=== PATIENT | female | born 1950 | race Caucasian/White ===

== ENCOUNTER 2017-08-27 20:51 | Emergency (ER) | payer MEDICARE ==
[2017-08-27 21:05] LABS: ABSOLUTE EOSINOPHILS # (AUTO) 0.1 10^3/uL (0.0-0.6); ABSOLUTE LYMPHOCYTES (AUTO) 2.6 10^3/uL (0.5-4.7); ABSOLUTE MONOCYTES (AUTO) 1.1 10^3/uL (0.1-1.4); ABSOLUTE NEUT (AUTO) 13.2 10^3/uL (1.7-8.2); BASOPHILS % (AUTO) 0.3 % (0-2); EOSINOPHILS % (AUTO) 0.8 % (0-6); HEMATOCRIT 40.7 % (36.0-47.0); HEMOGLOBIN 13.7 g/dL (12.0-15.5); LYMPHOCYTES % (AUTO) 15.3 % (13-45); MEAN CORPUSCULAR HEMOGLOBIN 29.9 pg (27.0-33.4); MEAN CORPUSCULAR HGB CONC 33.6 g/dL (32.0-36.0); MEAN CORPUSCULAR VOLUME 89 fl (80-97); MONOCYTES % (AUTO) 6.4 % (3-13); PLATELET COUNT 254 10^3/uL (150-450); RED BLOOD COUNT 4.58 10^6/uL (3.72-5.28); RED CELL DISTRIBUTION WIDTH 13.2 % (11.5-14.0); SEGMENTED NEUTROPHILS % (AUTO) 77.2 % (42-78); TOTAL CELLS COUNTED % (AUTO) 100 %
[2017-08-27 21:23] LABS: ALANINE AMINOTRANSFERASE 32 U/L (9-52); ALBUMIN 3.7 g/dL (3.5-5.0); ALKALINE PHOSPHATASE 109 U/L (38-126); ANION GAP 12 (5-19); ASPARTATE AMINO TRANSFERASE 17 U/L (14-36); BILIRUBIN,DIRECT 0.2 mg/dL (0.0-0.4); BILIRUBIN,TOTAL 0.4 mg/dL (0.2-1.3); BLOOD UREA NITROGEN 14 mg/dL (7-20); CALCIUM 9.2 mg/dL (8.4-10.2); CARBON DIOXIDE 21 mmol/L (22-30); CHLORIDE 108 mmol/L (98-107); CREATINE KINASE 60 U/L (30-135); GLUCOSE 156 mg/dL (75-110); POTASSIUM 3.4 mmol/L (3.6-5.0); SODIUM 140.6 mmol/L (137-145); TOTAL PROTEIN 6.5 g/dL (6.3-8.2)
[2017-08-27 21:35] LABS: CREATINE KINASE MB 0.69 ng/mL (<4.55)
[2017-08-27 21:43] LABS: TROPONIN I < 0.012 ng/mL
[2017-08-27] MEDS ORDERED: MAG HYDROX/AL HYDROX/SIMETH SUSP 30 ML UDCUP PO PRN (22:10)
[2017-08-27] MEDS ORDERED: HYDRALAZINE HCL INJ/PF 20 MG/1 ML SDV IV PRN (22:12)
--- NOTE | 2017-08-27 22:16 | ER Document Report ---
ED General - General Chief Complaint: Chest Pain > 30 Stated Complaint: CHEST PAIN Time Seen by Provider: 08/27/17 21:25 Notes: Patient is a 67-year-old female with a past medical history of hypertension, morbid obesity, small vessel atherotic coronary artery disease identified on a catheterization 5 years ago who presents with an episode of chest pain with associated diaphoresis and nausea. Patient states that she had chest pain that developed approximately 3 PM today while grocery shopping. She states that the chest pressure was a dull, constant, aching pressure over the left side of the chest without radiation. She states that it persisted for the next several hours and she eventually decided to take a dose of nitroglycerin. She stated approximately 3 or 4 minutes after taking that dose of nitroglycerin she became diaphoretic, nauseated and felt like she was going to pass out. She states that the pain also began to radiate into her neck at that time. She denies actually vomiting and denies any associated shortness of breath. She states that she did have a diarrheal bowel movement in the context of these symptoms. EMS was contacted and she was transported to the hospital. She denies ever having similar symptoms in the past. She states she has never had any kind of adverse reaction to taking nitroglycerin in the past. At time of presentation she notes that there is a sensation "that is just there" in her left chest but denies any ongoing pain or pressure. She has not seen her primary doctor regarding today's concerns. She has not had any provocative cardiac testing since her cardiac catheterization 5 years ago. TRAVEL OUTSIDE OF THE [place] IN LAST 30 DAYS: No - Related Data Allergies/Adverse Reactions: morphine [Morphine] Allergy (Intermediate, Verified 08/27/17 21:41) itching prednisone [Prednisone] Allergy (Verified 08/27/17 21:41) zolpidem tartrate [From Ambien] Allergy (Verified 08/27/17 21:41) bupropion [From Wellbutrin] Adverse Reaction (Verified 08/27/17 21:41) venlafaxine [From Effexor] Adverse Reaction (Verified 08/27/17 21:41) Past Medical History - General Information source: Patient - Social History Smoking Status: Never Smoker Chew tobacco use (# tins/day): Yes Frequency of alcohol use: None Drug Abuse: None Lives with: Family Family History: Reviewed & Not Pertinent Patient has suicidal ideation: No Patient has homicidal ideation: No - Past Medical History Cardiac Medical History: Reports: Hx Coronary Artery Disease, Hx Hypertension Denies: Hx Heart Attack Pulmonary Medical History: Reports: Hx Bronchitis - CHRONIC SINUS PROBS, Hx Pneumonia Denies: Hx Asthma, Hx COPD Neurological Medical History: Reports: Hx Migraine. Denies: Hx Cerebrovascular Accident, Hx Seizures Endocrine Medical History: Reports: Hx Diabetes Mellitus Type 2 Renal/ Medical History: Denies: Hx Peritoneal Dialysis GI Medical History: Denies: Hx Hepatitis, Hx Hiatal Hernia, Hx Ulcer Musculoskeltal Medical History: Reports Hx Arthritis Infectious Medical History: Denies: Hx Hepatitis Past Surgical History: Reports: Hx Appendectomy, Hx Hysterectomy, Hx Orthopedic Surgery - laminectomy, left shoulder. Denies: Hx Mastectomy, Hx Open Heart Surgery, Hx Pacemaker - Immunizations Hx Diphtheria, Pertussis, Tetanus Vaccination: Yes Hx Pneumococcal Vaccination: 08/08/10 Review of Systems - Review of Systems Notes: Constitutional: Negative for fever. HENT: Negative for sore throat. Eyes: Negative for visual changes. Cardiovascular: Negative for chest pain. Respiratory: Negative for shortness of breath. Gastrointestinal: Negative for abdominal pain, vomiting or diarrhea. Genitourinary: Negative for dysuria. Musculoskeletal: Negative for back pain. Skin: Negative for rash. Neurological: Negative for headaches, weakness or numbness. 10 point ROS negative except as marked above and in HPI. Physical Exam - Vital signs Vitals: Pulse Ox 94 18 20:54 Interpretation: Normal Notes: PHYSICAL EXAMINATION: GENERAL: Well-appearing, well-nourished and in no acute distress. HEAD: Atraumatic, normocephalic. EYES: Pupils equal round and reactive to light, extraocular movements intact, sclera anicteric, conjunctiva are normal. ENT: nares patent, oropharynx clear without exudates. Moist mucous membranes. NECK: Normal range of motion, supple without lymphadenopathy LUNGS: Breath sounds clear to auscultation bilaterally and equal. No wheezes rales or rhonchi. HEART: Regular rate and rhythm without murmurs ABDOMEN: Soft, nontender, normoactive bowel sounds. No guarding, no rebound. No masses appreciated. EXTREMITIES: Normal range of motion, no pitting or edema. No cyanosis. NEUROLOGICAL: No focal neurological deficits. Moves all extremities spontaneously and on command. PSYCH: Normal mood, normal affect. SKIN: Warm, Dry, normal turgor, no rashes or lesions noted. Course - Re-evaluation Re-evalutation: 08/27/17 22:16 Patient presents with a worrisome chest pain episode with associated diaphoresis and nausea with left-sided chest heaviness. This constellation of symptoms is concerning for an ACS event even though her EKG here does not show any acute ischemic changes and her initial troponin is negative. She denies any active chest heaviness or pain at this time. Vitals otherwise within normal limits. Chest x-ray is clear. Given her history and elevated heart score at 5, I am not comfortable with discharging this patient. I discussed with Dr. Poon who is accepted the patient for admission - Vital Signs Vital signs: Temp Pulse Resp BP Pulse Ox 98.9 F 72 12 116/53 L 96 08/27/17 21:15 08/27/17 21:15 08/28/17 02:31 08/28/17 02:31 08/28/17 02:31 - Laboratory Result Diagrams: 08/27/17 20:55 08/27/17 20:55 Laboratory results interpreted by me: 08/27/17 08/27/17 20:55 20:55 WBC 17.0 H Absolute Neutrophils 13.2 H Potassium 3.4 L Chloride 108 H Carbon Dioxide 21 L Est GFR (Non-Af Amer) 49 L Glucose 156 H - Diagnostic Test Radiology reviewed: Image reviewed, Reports reviewed Radiology results interpreted by me: 08/28/17 03:36 Chest x-ray: No acute infiltrate or pneumothorax - EKG Interpretation by Me Additional EKG results interpreted by me: 08/28/17 03:36 Normal sinus rhythm. Rate 74. No ST elevations or depressions. QTC is 435. T -wave flattening in the anterior septal leads Discharge - Discharge Clinical Impression: Nausea Chest pain Qualifiers: Chest pain type: unspecified Qualified Code(s): R07.9 - Chest pain, unspecified Condition: Fair Disposition: ADMITTED OBSERVATION Admitting Provider: Neelima Poon Unit Admitted: Telemetry
[2017-08-27] MEDS ORDERED: NITROGLYCERIN 0.4 MG/TAB 25 TAB/BOTTLE SL PRN (22:17)
[2017-08-27] MEDS ORDERED: ASPIRIN 81 MG TABLET, CHEWABLE PO ONE (22:17)
--- NOTE | 2017-08-27 22:17 | EKG REPORT ---
SEVERITY:- BORDERLINE ECG - SINUS RHYTHM BORDERLINE R WAVE PROGRESSION, ANTERIOR LEADS BORDERLINE T ABNORMALITIES, ANTERIOR LEADS : Confirmed by: Darrell Gaitan 27-Aug-2017 22:17:17
--- NOTE | 2017-08-27 22:24 | RADIOLOGY REPORT (SQ) ---
EXAM DESCRIPTION: CHEST SINGLE VIEW COMPLETED DATE/TIME: 08/27/2017 10:08 pm REASON FOR STUDY: cp COMPARISON: 10/14/2014 EXAM PARAMETERS: NUMBER OF VIEWS: One view. TECHNIQUE: Single frontal radiographic view of the chest acquired. RADIATION DOSE: NA LIMITATIONS: None. FINDINGS: LUNGS AND PLEURA: No opacities, masses or pneumothorax. No pleural effusion. MEDIASTINUM AND HILAR STRUCTURES: No masses. Contour normal. HEART AND VASCULAR STRUCTURES: Heart normal in size. Normal vasculature. BONES: No acute findings. HARDWARE: None in the chest. OTHER: No other significant finding. IMPRESSION: NO ACUTE RADIOGRAPHIC FINDING IN THE CHEST. TECHNICAL DOCUMENTATION: JOB ID: [id number]- All Rights Reserved
[2017-08-27] MEDS ORDERED: ATORVASTATIN CALCIUM 80 MG TABLET PO ONE (22:30)
[2017-08-27] MEDS ORDERED: KETOROLAC TROMETHAMINE INJ/PF 30 MG/1 ML SDV IV PRN (23:30)
[2017-08-27] MEDS ORDERED: ACETAMINOPHEN 325 MG TABLET PO PRN (23:30)
[2017-08-27] MEDS ORDERED: TRAMADOL HCL 50 MG TABLET PO PRN (23:30)
[2017-08-28 04:44] LABS: ABSOLUTE EOSINOPHILS # (AUTO) 0.1 10^3/uL (0.0-0.6); ABSOLUTE LYMPHOCYTES (AUTO) 3.2 10^3/uL (0.5-4.7); ABSOLUTE NEUT (AUTO) 7.4 10^3/uL (1.7-8.2); BASOPHILS % (AUTO) 0.2 % (0-2); EOSINOPHILS % (AUTO) 1.2 % (0-6); HEMOGLOBIN 12.4 g/dL (12.0-15.5); LYMPHOCYTES % (AUTO) 27.5 % (13-45); MEAN CORPUSCULAR HEMOGLOBIN 29.7 pg (27.0-33.4); MEAN CORPUSCULAR HGB CONC 33.5 g/dL (32.0-36.0); MEAN CORPUSCULAR VOLUME 89 fl (80-97); MONOCYTES % (AUTO) 8.3 % (3-13); PLATELET COUNT 197 10^3/uL (150-450); RED BLOOD COUNT 4.18 10^6/uL (3.72-5.28); SEGMENTED NEUTROPHILS % (AUTO) 62.8 % (42-78); TOTAL CELLS COUNTED % (AUTO) 100 %; WHITE BLOOD COUNT 11.8 10^3/uL (4.0-10.5)
[2017-08-28 05:05] LABS: ANION GAP 8 (5-19); BLOOD UREA NITROGEN 15 mg/dL (7-20); CALCIUM 7.9 mg/dL (8.4-10.2); CARBON DIOXIDE 20 mmol/L (22-30); CHLORIDE 112 mmol/L (98-107); CHOLESTEROL 147.92 mg/dL (0-200); CREATINE KINASE 65 U/L (30-135); GLUCOSE 101 mg/dL (75-110); POTASSIUM 3.3 mmol/L (3.6-5.0); SODIUM 139.8 mmol/L (137-145); TRIGLYCERIDES 96 mg/dL (<150)
[2017-08-28 05:16] LABS: CREATINE KINASE MB 0.85 ng/mL (<4.55)
[2017-08-28 05:21] LABS: TROPONIN I < 0.012 ng/mL
[2017-08-28 05:49] LABS: DIRECT LDL 85 mg/dL (<100)
[2017-08-28] MEDS: HEPARIN SOD (PORCINE) 5,000 UNIT/ML 1 ML SYRINGE SUBCUT SCH ×3 (06:14→22:22)
[2017-08-28] MEDS ORDERED: POTASSIUM CHLORIDE 10 MEQ TABLET.SA PO ONE (06:19)
--- NOTE | 2017-08-28 06:57 | PDOC H&P ---
History of Present Illness Admission Date/PCP: 08/27/17 22:30 GLADYS MARTINEZ MD Patient complains of: Chest tightness History of Present Illness: CHELY APONTE is a 67 year old female with a past medical history of chronic pain, fibromyalgia, unclear angina, depression, anxiety, hypertension and obesity. Patient presents with 3 hours of left-sided chest tightness she describes as angina which was nonradiating, without nausea or vomiting, or diaphoresis. 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 She took a sublingual nitroglycerin tablet resulting in diaphoresis, lightheadedness and urged to defecate. No clear alleviating symptoms. Patient states she has been having increased episodes of chest tightness but has not taken nitroglycerin for 6 months. She admits to angina diagnosis following a cardiac catheterization 5 years ago at [facility] showing distal disease only. Patient reports recent annual physical reveals ideal cholesterol. She is taking no new medications. In the emergency room she has an unremarkable workup and is referred to the hospitalist for observation. Past Medical History Cardiac Medical History: Reports: Coronary Artery Disease, Hypertension Denies: Myocardial Infarction Pulmonary Medical History: Reports: Bronchitis - CHRONIC SINUS PROBS, Pneumonia Denies: Asthma, Chronic Obstructive Pulmonary Disease (COPD) Neurological Medical History: Reports: Migraine Denies: Seizures Endocrine Medical History: Reports: Diabetes Mellitus Type 2 GI Medical History: Denies: Hepatitis, Hiatal Hernia Musculoskeltal Medical History: Reports: Arthritis Hematology: Denies: Anemia, Sickle Cell Disease Past Surgical History Past Surgical History: Reports: Appendectomy, Hysterectomy, Orthopedic Surgery - laminectomy, left shoulder Denies: Amputation, Mastectomy, Pacemaker Social History Information Source: Patient Lives with: Family Smoking Status: Never Smoker Frequency of Alcohol Use: None - Advance Directive Resuscitation Status: Full Code Family History Family History: CAD, DM Parental Family History Reviewed: Yes Children Family History Reviewed: Yes Sibling(s) Family History Reviewed.: Yes Medication/Allergy Home Medications: Alprazolam [Xanax 0.25 mg Tablet] 0.25 mg PO Q6HP PRN 03/20/14 Biotin [Biotin 5 mg Capsule] 1 cap PO DAILY 03/20/14 Citalopram Hydrobromide [Celexa 40 mg Tablet] 1 tab PO DAILY 03/20/14 Ergocalciferol (Vitamin D2) [Vitamin D2] 50,000 unit PO DAILY 03/20/14 Fluticasone Propionate [Flonase Nasal Ft [place] 50 Mcg/Ft Mitchell 16 gm] 1 spray NASL Q12 03/20/14 Nitrofurantoin Macrocrystal [Nitrofurantoin] 50 mg PO DAILY 03/20/14 Pregabalin [Lyrica 50 Mg Capsule] 50 mg PO DAILY 03/20/14 Cetirizine HCl 10 mg PO DAILY 08/19/17 Esomeprazole Magnesium 20 mg PO DAILY 08/19/17 Montelukast Sodium [Singulair] 10 mg PO QHS 08/19/17 Valsartan [Diovan 80 mg Tablet] 80 mg PO DAILY 08/19/17 Zonisamide 100 mg PO DAILY 08/19/17 Allergies/Adverse Reactions: morphine [Morphine] Allergy (Intermediate, Verified 08/27/17 21:41) itching prednisone [Prednisone] Allergy (Verified 08/27/17 21:41) zolpidem tartrate [From Ambien] Allergy (Verified 08/27/17 21:41) bupropion [From Wellbutrin] Adverse Reaction (Verified 08/27/17 21:41) venlafaxine [From Effexor] Adverse Reaction (Verified 08/27/17 21:41) Review of Systems Constitutional: ABSENT: chills, fever(s), headache(s), weight gain, weight loss Eyes: ABSENT: visual disturbances Ears: ABSENT: hearing changes Cardiovascular: ABSENT: chest pain, dyspnea on exertion, edema, orthropnea, palpitations Respiratory: ABSENT: cough, hemoptysis Gastrointestinal: ABSENT: abdominal pain, constipation, diarrhea, hematemesis, hematochezia, nausea, vomiting Genitourinary: ABSENT: dysuria, hematuria Musculoskeletal: ABSENT: joint swelling Integumentary: ABSENT: rash, wounds Neurological: ABSENT: abnormal gait, abnormal speech, confusion, dizziness, focal weakness, syncope Psychiatric: ABSENT: anxiety, depression, homidical ideation, suicidal ideation Endocrine: ABSENT: cold intolerance, heat intolerance, polydipsia, polyuria Hematologic/Lymphatic: ABSENT: easy bleeding, easy bruising Physical Exam Vital Signs: Temp Pulse Resp BP Pulse Ox 98.9 F 72 15 106/57 L 96 08/27/17 21:15 08/27/17 21:15 08/28/17 05:31 08/28/17 05:01 08/28/17 05:31 General appearance: PRESENT: no acute distress, well-developed, well-nourished Head exam: PRESENT: atraumatic, normocephalic Eye exam: PRESENT: conjunctiva pink, EOMI, PERRLA. ABSENT: scleral icterus Ear exam: PRESENT: normal external ear exam Mouth exam: PRESENT: moist, tongue midline Neck exam: ABSENT: carotid bruit, JVD, lymphadenopathy, thyromegaly Respiratory exam: PRESENT: clear to auscultation rosa. ABSENT: rales, rhonchi, wheezes Cardiovascular exam: PRESENT: RRR. ABSENT: diastolic murmur, rubs, systolic murmur Pulses: PRESENT: normal dorsalis pedis pul Vascular exam: PRESENT: normal capillary refill GI/Abdominal exam: PRESENT: normal bowel sounds, soft. ABSENT: distended, guarding, mass, organolmegaly, rebound, tenderness Rectal exam: PRESENT: deferred Extremities exam: PRESENT: full ROM. ABSENT: calf tenderness, clubbing, pedal edema Neurological exam: PRESENT: alert, awake, oriented to person, oriented to place , oriented to time, oriented to situation, CN II-XII grossly intact. ABSENT: motor sensory deficit Psychiatric exam: PRESENT: appropriate affect, normal mood. ABSENT: homicidal ideation, suicidal ideation Skin exam: PRESENT: dry, intact, warm. ABSENT: cyanosis, rash Results Laboratory Results: 08/28/17 04:24 08/28/17 04:24 08/28/17 08/28/17 04:24 04:24 WBC 11.8 H RBC 4.18 Hgb 12.4 Hct 37.0 MCV 89 MCH 29.7 MCHC 33.5 RDW 13.0 Plt Count 197 Seg Neutrophils % 62.8 Lymphocytes % 27.5 Monocytes % 8.3 Eosinophils % 1.2 Basophils % 0.2 Absolute Neutrophils 7.4 Absolute Lymphocytes 3.2 Absolute Monocytes 1.0 Absolute Eosinophils 0.1 Absolute Basophils 0.0 Sodium 139.8 Potassium 3.3 L Chloride 112 H Carbon Dioxide 20 L Anion Gap 8 BUN 15 Creatinine 0.79 Est GFR ( Amer) > 60 Est GFR (Non-Af Amer) > 60 Glucose 101 Calcium 7.9 L Triglycerides 96 Cholesterol 147.92 LDL Cholesterol Direct 85 VLDL Cholesterol 19.0 HDL Cholesterol 51 08/28/17 08/28/17 04:24 04:24 Creatine Kinase 65 CK-MB (CK-2) 0.85 Troponin I < 0.012 Impressions: Chest X-Ray 08/27/17 20:54 IMPRESSION: NO ACUTE RADIOGRAPHIC FINDING IN THE CHEST. Assessment & Plan - Diagnosis (1) Atypical chest pain Is this a current diagnosis for this admission?: Yes Plan: Atypical chest pain though the patient's pain is atypical there are multiple risk factors for coronary artery disease and subsequently will observe and evaluation of acute coronary syndrome versus coronary artery disease with anginal equivalents. Cardiac monitoring blood pressure Q6 hours ,TSH, lipid profile, serial cardiac enzymes and cardiac stress test (2) Fibromyalgia Is this a current diagnosis for this admission?: Yes Plan: Supportive care (3) Hypertension Is this a current diagnosis for this admission?: Yes Plan: Appears ideally controlled with outpatient regiment (4) Hyperglycemia Is this a current diagnosis for this admission?: Yes Plan: We will obtain glycosylated hemoglobin. - Time Time Spent: 30 to 50 Minutes
[2017-08-28] MEDS: DOCUSATE SODIUM 100 MG CAPSULE PO SCH (09:26)
[2017-08-28 11:03] LABS: CREATINE KINASE MB 0.97 ng/mL (<4.55)
[2017-08-28 11:08] LABS: TROPONIN I < 0.012 ng/mL
--- NOTE | 2017-08-28 16:28 | PDOC PROGRESS REPORT ---
Subjective Progress Note for:: 08/28/17 Subjective:: The patient is a 67 year old female with a PMH of chronic pain, fibromyalgia, unclear angina, depression, anxiety, hypertension and obesity. She was admitted on 08/27/18 for atypical chest pain for cardiac work up. The patient was seen on morning rounds resting in bed comfortably on room air. She states that she continues to have left upper chest discomfort described as "awareness and maybe pressure" that is not particularly worsened by activity or relieved by rest. She denies associated symptoms of headache, dizziness, dyspnea, diaphoresis, or nausea. She is no questions or concerns at this time. Awaiting cardiac stress testing. Reason For Visit: CHEST PAIN Physical Exam Vital Signs: Temp Pulse Resp BP Pulse Ox 97.5 F 63 20 138/71 H 98 08/28/17 15:08 08/28/17 15:08 08/28/17 15:08 08/28/17 15:08 08/28/17 15:08 Intake & Output 08/27/17 08/28/17 08/29/17 06:59 06:59 06:59 Weight 90.71 kg 90.718 kg General appearance: PRESENT: no acute distress, cooperative, obese, well- developed, well-nourished Head exam: PRESENT: atraumatic, normocephalic Eye exam: PRESENT: conjunctiva pink, EOMI, PERRLA. ABSENT: scleral icterus Ear exam: PRESENT: normal external ear exam Mouth exam: PRESENT: moist, tongue midline Neck exam: ABSENT: carotid bruit, JVD, lymphadenopathy, thyromegaly Respiratory exam: PRESENT: clear to auscultation rosa, symmetrical, unlabored. ABSENT: rales, rhonchi, wheezes Cardiovascular exam: PRESENT: RRR, +S1, +S2. ABSENT: diastolic murmur, rubs, systolic murmur Pulses: PRESENT: normal dorsalis pedis pul Vascular exam: PRESENT: normal capillary refill GI/Abdominal exam: PRESENT: normal bowel sounds, soft. ABSENT: distended, guarding, mass, organolmegaly, rebound, tenderness Rectal exam: PRESENT: deferred Extremities exam: PRESENT: full ROM. ABSENT: calf tenderness, clubbing, pedal edema Neurological exam: PRESENT: alert, awake, oriented to person, oriented to place , oriented to time, oriented to situation, CN II-XII grossly intact. ABSENT: motor sensory deficit Psychiatric exam: PRESENT: appropriate affect, normal mood. ABSENT: homicidal ideation, suicidal ideation Skin exam: PRESENT: dry, intact, warm. ABSENT: cyanosis, rash Results Laboratory Results: 08/28/17 04:24 08/28/17 04:24 08/28/17 08/28/17 04:24 04:24 WBC 11.8 H RBC 4.18 Hgb 12.4 Hct 37.0 MCV 89 MCH 29.7 MCHC 33.5 RDW 13.0 Plt Count 197 Seg Neutrophils % 62.8 Lymphocytes % 27.5 Monocytes % 8.3 Eosinophils % 1.2 Basophils % 0.2 Absolute Neutrophils 7.4 Absolute Lymphocytes 3.2 Absolute Monocytes 1.0 Absolute Eosinophils 0.1 Absolute Basophils 0.0 Sodium 139.8 Potassium 3.3 L Chloride 112 H Carbon Dioxide 20 L Anion Gap 8 BUN 15 Creatinine 0.79 Est GFR ( Amer) > 60 Est GFR (Non-Af Amer) > 60 Glucose 101 Calcium 7.9 L Triglycerides 96 Cholesterol 147.92 LDL Cholesterol Direct 85 VLDL Cholesterol 19.0 HDL Cholesterol 51 08/28/17 08/28/17 08/28/17 04:24 04:24 10:15 Creatine Kinase 65 CK-MB (CK-2) 0.85 0.97 Troponin I < 0.012 < 0.012 Impressions: Chest X-Ray 08/27/17 20:54 IMPRESSION: NO ACUTE RADIOGRAPHIC FINDING IN THE CHEST. Assessment & Plan - Diagnosis (1) Atypical chest pain Is this a current diagnosis for this admission?: Yes Plan: Atypical chest pain; though patient does have multiple risk factors. Heart score of 4; moderate probability. Lipid panel and TSH are acceptable. Serial troponins are negative. Cardiac stress testing is planned for tomorrow. The patient reports a statin allergy and so will hold on continued atorvastatin. Will continue daily aspirin. (2) Fibromyalgia Is this a current diagnosis for this admission?: Yes Plan: Supportive care; will continue the patient's home dose of Lyrica and Celexa. Will provide Tramadol and Toradol prn pain. Encourage nonpharmacological interventions such as heat and ambulation. (3) Hypertension Is this a current diagnosis for this admission?: Yes Plan: Will continue the patient's home dose of Valsartan. Hydralazine as needed for blood pressure control. She has been placed on a cardiac diet. (4) Hyperglycemia Is this a current diagnosis for this admission?: Yes Plan: Hgb A1c is noted to be 6.6%. (5) Hypokalemia Is this a current diagnosis for this admission?: Yes Plan: Oral potassium supplementation has been provided. Will monitor with daily chemistries and replace as needed. - Time Time Spent with patient: 25-34 minutes Medications reviewed and adjusted accordingly: Yes Anticipated discharge: Home Within: within 24 hours
[2017-08-28 16:33] LABS: CREATINE KINASE MB 1.04 ng/mL (<4.55)
[2017-08-28 16:35] LABS: TROPONIN I < 0.012 ng/mL
[2017-08-28] MEDS ORDERED: LANSOPRAZOLE 30 MG TAB.RAP.DR PO ONE (21:30)
[2017-08-28] MEDS ORDERED: PREGABALIN 75 MG CAPSULE PO ONE (21:30)
[2017-08-28] MEDS ORDERED: CITALOPRAM HYDROBROMIDE 20 MG TABLET PO ONE (22:00)
[2017-08-28] MEDS ORDERED: VALSARTAN 80 MG TABLET PO ONE (22:00)
[2017-08-28] MEDS ORDERED: ATORVASTATIN CALCIUM 80 MG TABLET PO SCH (22:00)
[2017-08-28] MEDS ORDERED: MONTELUKAST SODIUM 10 MG TABLET PO SCH (22:00)
[2017-08-28] MEDS: FLUTICASONE NASAL SPRAY 50 MCG/SPRY 120 SPRAY/16 GM NASL SCH (22:29)
[2017-08-29] MEDS: HEPARIN SOD (PORCINE) 5,000 UNIT/ML 1 ML SYRINGE SUBCUT SCH ×2 (06:37→14:50)
[2017-08-29 07:06] LABS: HEMATOCRIT 38.7 % (36.0-47.0); HEMOGLOBIN 13.1 g/dL (12.0-15.5); MEAN CORPUSCULAR HGB CONC 33.8 g/dL (32.0-36.0); MEAN CORPUSCULAR VOLUME 89 fl (80-97); PLATELET COUNT 223 10^3/uL (150-450); RED BLOOD COUNT 4.36 10^6/uL (3.72-5.28); WHITE BLOOD COUNT 7.2 10^3/uL (4.0-10.5)
[2017-08-29 07:32] LABS: ANION GAP 8 (5-19); BLOOD UREA NITROGEN 16 mg/dL (7-20); CALCIUM 9.8 mg/dL (8.4-10.2); CARBON DIOXIDE 25 mmol/L (22-30); CHLORIDE 107 mmol/L (98-107); GLUCOSE 130 mg/dL (75-110); POTASSIUM 4.6 mmol/L (3.6-5.0); SODIUM 140.4 mmol/L (137-145)
[2017-08-29] MEDS ORDERED: ASPIRIN 81 MG TABLET, CHEWABLE PO SCH (10:00)
[2017-08-29] MEDS ORDERED: VALSARTAN 80 MG TABLET PO SCH ×2 (10:00→22:00)
[2017-08-29] MEDS ORDERED: CITALOPRAM HYDROBROMIDE 20 MG TABLET PO SCH ×2 (10:00→22:00)
[2017-08-29] MEDS ORDERED: PREGABALIN 75 MG CAPSULE PO SCH ×2 (10:00→22:00)
[2017-08-29] MEDS: FLUTICASONE NASAL SPRAY 50 MCG/SPRY 120 SPRAY/16 GM NASL SCH (11:30)
[2017-08-29] MEDS: DOCUSATE SODIUM 100 MG CAPSULE PO SCH (11:30)
[2017-08-29] MEDS ORDERED: REGADENOSON INJ 0.4 MG/5 ML DISP.SYRIN IV ONE (14:25)
[2017-08-29] MEDS ORDERED: INFLUENZA ADLT QUAD (36MOS+) 2017-18 VAC 0.5 ML SYR IM PRN (14:27)
[2017-08-29 14:42] VITALS: BP 122/52
--- NOTE | 2017-08-29 14:43 | PDOC DISCHARGE SUMMARY ---
General - Admit/Disc Date/PCP Admission Date/Primary Care Provider: 08/27/17 22:30 GLADYS MARTINEZ MD Discharge Date: 08/29/17 - Discharge Diagnosis (1) Atypical chest pain Is this a current diagnosis for this admission?: Yes (2) Fibromyalgia Is this a current diagnosis for this admission?: Yes (3) Hypertension Is this a current diagnosis for this admission?: Yes (4) Hyperglycemia Is this a current diagnosis for this admission?: Yes (5) Hypokalemia Is this a current diagnosis for this admission?: Yes - Additional Information Resuscitation Status: Full Code Discharge Diet: Cardiac, Other (Comments) - Low carb diet. Discharge Activity: Activity As Tolerated, Balance Activity w/Rest, Slowly Increase Activity Home Medications: Biotin [Biotin 5 mg Capsule] 5 mg PO DAILY 08/28/17 Cetirizine HCl [Zyrtec] 10 mg PO DAILY 08/28/17 Citalopram Hydrobromide [Celexa 20 mg Tablet] 20 mg PO DAILY 08/28/17 Ergocalciferol (Vitamin D2) [Vitamin D2] 50,000 unit PO FR@1000 08/28/17 Esomeprazole Magnesium [Nexium] 20 mg PO DAILY 08/28/17 Fluticasone Propionate [Flonase Nasal [place] 50 Mcg/[place] 16 gm] 1 spray NASL Q12 08/28/17 Montelukast Sodium [Singulair 10 mg Tablet] 10 mg PO QHS 08/28/17 Pregabalin [Lyrica] 150 mg PO DAILY 08/28/17 Valsartan [Diovan 80 mg Tablet] 80 mg PO DAILY 08/28/17 Zonisamide [Zonegran 100 mg Capsule] 100 mg PO DAILY 08/28/17 Acetaminophen [Tylenol 325 mg Tablet] 650 mg PO Q6HP PRN tablet 08/29/17 Aspirin [Aspirin 81 mg Chewable Tablet] 81 mg PO DAILY tab.chew 08/29/17 Citalopram Hydrobromide [Celexa 20 mg Tablet] 20 mg PO QHS tablet 08/29/17 History of Present Illness History of Present Illness: Per H&P by Dr. Poon: CHELY APONTE is a 67 year old female with a past medical history of chronic pain, fibromyalgia, unclear angina, depression, anxiety, hypertension and obesity. Patient presents with 3 hours of left-sided chest tightness she describes as angina which was nonradiating, without nausea or vomiting, or diaphoresis. 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 She took a sublingual nitroglycerin tablet resulting in diaphoresis, lightheadedness, and urge to defecate. No clear alleviating symptoms. Patient states she has been having increased episodes of chest tightness but has not taken nitroglycerin for 6 months. She admits to angina diagnosis following a cardiac catheterization 5 years ago at [facility] showing distal disease only. Patient reports recent annual physical reveal ideal cholesterol. She is taking no new medications. In the emergency room she has an unremarkable workup and is referred to the hospitalist for observation. Hospital Course Hospital Course: The patient was admitted for observation of chest pain. Her serial troponins were negative, TSH appropriate at 2.89, and lipid panel found to be ideal. Her Hgb A1C is noted to be 6.6%; the patient was advised to reduce sugar/carbs and to increase physical activity as tolerated. A cardiac stress test was obtained and determined to be normal; at time of this dictation, the official report has not been finalized. The patient did not experience any chest pain while admitted. At time of discharge; she is in stable condition and pain free. She is advised to begin a daily Aspirin regiment and to follow up with her primary care provider within 1 week. Physical Exam Vital Signs: Temp Pulse Resp BP Pulse Ox 97.9 F 71 18 136/44 H 96 08/29/17 11:23 08/29/17 11:23 08/29/17 11:23 08/29/17 11:23 08/29/17 11:23 Intake & Output 08/28/17 08/29/17 08/30/17 06:59 06:59 06:59 Intake Total 375 Output Total 650 Balance -275 Weight 90.71 kg 93.6 kg General appearance: PRESENT: no acute distress, obese, well-developed, well- nourished Head exam: PRESENT: atraumatic, normocephalic Eye exam: PRESENT: conjunctiva pink, EOMI, PERRLA. ABSENT: scleral icterus Ear exam: PRESENT: normal external ear exam Mouth exam: PRESENT: moist, tongue midline Neck exam: ABSENT: carotid bruit, JVD, lymphadenopathy, thyromegaly Respiratory exam: PRESENT: clear to auscultation rosa, symmetrical, unlabored. ABSENT: rales, rhonchi, wheezes Cardiovascular exam: PRESENT: RRR, +S1, +S2. ABSENT: diastolic murmur, rubs, systolic murmur Pulses: PRESENT: normal dorsalis pedis pul Vascular exam: PRESENT: normal capillary refill GI/Abdominal exam: PRESENT: normal bowel sounds, soft. ABSENT: distended, guarding, mass, organolmegaly, rebound, tenderness Rectal exam: PRESENT: deferred Extremities exam: PRESENT: full ROM. ABSENT: calf tenderness, clubbing, pedal edema Neurological exam: PRESENT: alert, awake, oriented to person, oriented to place , oriented to time, oriented to situation, CN II-XII grossly intact. ABSENT: motor sensory deficit Psychiatric exam: PRESENT: appropriate affect, normal mood. ABSENT: homicidal ideation, suicidal ideation Skin exam: PRESENT: dry, intact, warm. ABSENT: cyanosis, rash Results Laboratory Results: 08/29/17 06:33 08/29/17 06:33 08/29/17 08/29/17 06:33 06:33 WBC 7.2 RBC 4.36 Hgb 13.1 Hct 38.7 MCV 89 MCH 30.0 MCHC 33.8 RDW 13.0 Plt Count 223 Sodium 140.4 Potassium 4.6 Chloride 107 Carbon Dioxide 25 Anion Gap 8 BUN 16 Creatinine 1.04 Est GFR ( Amer) > 60 Est GFR (Non-Af Amer) 53 L Glucose 130 H Calcium 9.8 08/28/17 08/28/17 08/28/17 04:24 04:24 10:15 Creatine Kinase 65 CK-MB (CK-2) 0.85 0.97 Troponin I < 0.012 < 0.012 08/28/17 15:45 Creatine Kinase CK-MB (CK-2) 1.04 Troponin I < 0.012 Impressions: Chest X-Ray 08/27/17 20:54 IMPRESSION: NO ACUTE RADIOGRAPHIC FINDING IN THE CHEST. Qualifiers PATEINT BEING DISCHARGED WITH ANY OF THE FOLLOWING DIAGNOSIS?: No
--- NOTE | 2017-08-29 21:23 | DRAGON STRESS TEST REPORT ---
Intravenous Lexiscan Cardiolite stress test using single photon emmision computerized tomography. Date of procedure: . Ordering Provider: Dr. Moises Poon. Patient's status: In Patient Indication: Chest pain in a patient with a history of coronary artery disease.. Coronary risk factors: Age, diabetes mellitus, and hypertension Resting EKG: Sinus rhythm low voltage throughout. No acute changes Stress EKG: No changes of ischemia. Reason for termination: Protocol. Conclusions: Normal EKG and hemodynamic response to IV Lexiscan. Nuclear data: At rest the patient was given 13.56 millicuries of technetium 99m sestamibi injected intravenously. As per protocol rest non gated SPECT images were obtained. Subsequently the patient was given intravenous Lexiscan at a dose of 0.4 mg in 5 mL intravenously, followed by flush with normal saline. Subsequently the stress dose of 42.7 millicuries of technetium 99m sestamibi was injected intravenously. As per protocol stress gated images were obtained. Nuclear interpretation: Review of images showed that all segments of the myocardium had normal perfusion at rest, and normal perfusion post stress with IV Lexiscan. All segments of the myocardium had normal motion, contraction, and thickening by gated study. T. I D. ratio was normal at 1.10. Computer read rest, and stress left ventricular ejection fraction were 83 %, and 91 %, respectively. This probably is an overestimation of the left ventricular ejection fraction. Conclusion: 1. There is no scintigraphic evidence of Lexiscan induced myocardial ischemia. 2. There is no scintigraphic evidence of myocardial infarction/scar. Recommendations: 1. Aggressive medical treatment of coronary artery disease, and if chest pain recurs then would recommend cardiac catheterization. 2. Aggressive risk factor modification, and treating the underlying co- morbidities. [facility]
[2017-08-29] MEDS ORDERED: LANSOPRAZOLE 30 MG TAB.RAP.DR PO SCH (22:00)
[2017-09-02] MEDS ORDERED: ERGOCALCIFEROL (VITAMIN D2) 50000 UNIT (1.25 MG) CAPSULE PO SCH (10:00)
== END 2017-08-29 15:50 | disposition home or self-care (01) ==
LOC: ER 20:51 → EH 22:30 → 4W 08-28 15:06
PROVIDERS: ADMIT Internal Medicine; ATTEND Internal Medicine
PROC: 3E0234Z Introduction of Serum, Toxoid and Vaccine into Muscle, Percutaneous Approach (ICD-10-PCS; principal; 2017-08-29)
DX: R07.89 Other chest pain (principal); E11.65 Type 2 diabetes mellitus with hyperglycemia; I10 Essential (primary) hypertension; M79.7 Fibromyalgia; E87.6 Hypokalemia; E66.01 Morbid (severe) obesity due to excess calories; R61 Generalized hyperhidrosis; R11.0 Nausea; I25.10 Atherosclerotic heart disease of native coronary artery without angina pectoris; F32.9 Major depressive disorder, single episode, unspecified; F41.9 Anxiety disorder, unspecified; G89.29 Other chronic pain; Z88.6 Allergy status to analgesic agent; Z90.710 Acquired absence of both cervix and uterus; Z23 Encounter for immunization; Z90.49 Acquired absence of other specified parts of digestive tract; Z82.49 Family history of ischemic heart disease and other diseases of the circulatory system; Z83.3 Family history of diabetes mellitus; Z68.36 Body mass index [BMI] 36.0-36.9, adult; Z72.0 Tobacco use
CPT/HCPCS: 93005; 99285; 96372; 96374; 36415 ×2; 82553 ×2; 82550 ×2; 84443; 85025 ×2; 85027; 80048 ×2; 80053; 84484 ×2; 83036; 80061; 93017; 71045; 78452; 90686; 93010; A9500; J2785; A9270 ×10; J1644 ×2; J1885; J3490 ×2; Q9969

== ENCOUNTER 2017-09-15 08:02 | Day surgery (SDC) | payer MEDICARE, OTHER ==
[~2017-09-15 08:02] MED LIST: BESIFLOXACIN HCL 0.6% OPH SUSP 5 ML BOTTLE OD PRN; CYCLOPENTOLATE 0.2%/PHENYLEPHRINE 1% OPH SOLN 2 ML OD PRN; KETOROLAC TROMETHAMINE 0.45% 4 DROP/0.4 ML DROPERETTE OD PRN; TETRACAINE HCL 0.5% OPH SOLN 2 ML OD PRN; TROPICAMIDE 1% OPH SOLN 3 ML OD PRN
[2017-09-15] MEDS ORDERED: CHONDR SU A NA/HYALUR INTRAOC KIT (SURGICARE) ONE (08:05)
[2017-09-15] MEDS ORDERED: EPINEPHRINE INJ/PF 1 MG/1 ML AMPULE ONE (08:05)
[2017-09-15] MEDS ORDERED: LIDOCAINE 1% INJ-PF (10 MG/ML) 30 ML SDV ONE (08:05)
[2017-09-15] MEDS: TETRACAINE HCL 0.5% OPH SOLN 2 ML OD PRN ×3 (08:25→09:10)
[2017-09-15] MEDS: TROPICAMIDE 1% OPH SOLN 3 ML OD PRN ×3 (08:26→08:52)
[2017-09-15] MEDS: CYCLOPENTOLATE 0.2%/PHENYLEPHRINE 1% OPH SOLN 2 ML OD PRN ×3 (08:26→08:52)
[2017-09-15] MEDS: BESIFLOXACIN HCL 0.6% OPH SUSP 5 ML BOTTLE OD PRN ×4 (08:26→09:33)
[2017-09-15] MEDS ORDERED: MIDAZOLAM 2 MG/2 ML INJ ONE ×2 (08:34→08:55)
[2017-09-15] MEDS ORDERED: FENTANYL CITRATE INJ/PF 100 MCG/2 ML AMPUL ONE (08:55)
--- NOTE | 2017-09-15 16:49 | [facility] OPERATIVE REPORT E ---
[facility] Operative Report NAME: CHELY APONTE AGE: 67Y DATE OF SURGERY: 09/15/2017 ROOM: PREOPERATIVE DIAGNOSIS: CATARACT, RIGHT EYE. POSTOPERATIVE DIAGNOSIS: CATARACT, RIGHT EYE. OPERATION: Cataract extraction with intraocular lens implant of the right eye. SURGEON: BERNARDO YOUNG M.D. ANESTHESIA: Topical. TISSUE REMOVED OR ALTERED: PROCEDURE: After obtaining appropriate consent, the patient's right eye was prepped and draped in sterile fashion as well as the surgeon in a sterile manner and cataract surgery was started. First a paracentesis blade was used to make a small side-port incision. Viscoelastic was used to inflate the anterior chamber. Next a 2.4 mm incision was made with the paracentesis blade. A continuous capsulorrhexis incision was made using a cystotome and Utrata forceps. Following this hydrodissection was carried out to make the lens fully loose and mobile and it was rotated 90 degrees. Following this, a bwekim-nsk-dzmsfsr technique was used to phacoemulsify the lens with a CDE of 6.48. The remaining cortex was removed with irrigation/aspiration. Provisc was instilled into the capsular bag to inflate the bag. A SN60WF, 20.5 diopter lens was placed. The remaining viscoelastic material was removed with irrigation/aspiration. Following this, a 10-0 nylon suture was used to close the incision and it was found to be watertight. Vigamox was instilled in the eye and a protective shield was placed over the eye. The patient returned to the postoperative recovery in stable condition. DICTATING PHYSICIAN: BERNARDO YOUNG M.D. [id number] Y#: [id number] ID: [id number] JOB#: [id number] ACCT: [id number] cc:BERNARDO YOUNG M.D. >
--- NOTE | 2017-09-15 16:54 | [facility] DISCHARGE SUMMARY E ---
[facility] Discharge Summary NAME: CHELY APONTE AGE: 67Y ADMITTED: 09/15/2017 DISCHARGED: 09/15/2017 FINAL DIAGNOSIS: CATARACT, RIGHT EYE. HISTORY OF PRESENT ILLNESS: This is a 67-year-old patient who underwent cataract extraction of the right eye. She underwent surgery because she was having difficulty reading small print. DISCHARGE INSTRUCTIONS: She should be on a regular diet. No bending at her waist, no heavy lifting. She should use Besivance, Ilevro and Durezol at 3:00 p.m. and 8:00 p.m. Sleep with a rigid shield. I will see her for a 1-day postoperative tomorrow. DICTATING PHYSICIAN: BERNARDO YOUNG M.D. [id number] PHY#: [id number] ID: [id number] JOB#: [id number] ACCT: [id number] cc:BERNARDO YOUNG M.D. >
== END 2017-09-15 10:19 | disposition home or self-care (01) ==
LOC: SC 08:02
PROVIDERS: ATTEND Internal Medicine
PROC: 08RJ3JZ Replacement of Right Lens with Synthetic Substitute, Percutaneous Approach (ICD-10-PCS; principal; 2017-09-15 09:30)
DX: H25.813 Combined forms of age-related cataract, bilateral (principal); E11.9 Type 2 diabetes mellitus without complications; H02.052 Trichiasis without entropion right lower eyelid; H43.813 Vitreous degeneration, bilateral; I10 Essential (primary) hypertension; E78.00 Pure hypercholesterolemia, unspecified; M19.90 Unspecified osteoarthritis, unspecified site; M79.7 Fibromyalgia; K21.9 Gastro-esophageal reflux disease without esophagitis; Z88.8 Allergy status to other drugs, medicaments and biological substances
CPT/HCPCS: 82962; 66984; V2632; J2250; J3490 ×2; A9270; J0171; J3010; 142

== ENCOUNTER 2017-10-13 07:34 | Day surgery (SDC) | payer MEDICARE, OTHER ==
[~2017-10-13 07:34] MED LIST changes: -BESIFLOXACIN HCL 0.6% OPH SUSP 5 ML BOTTLE OD PRN; -CYCLOPENTOLATE 0.2%/PHENYLEPHRINE 1% OPH SOLN 2 ML OD PRN; -KETOROLAC TROMETHAMINE 0.45% 4 DROP/0.4 ML DROPERETTE OD PRN; +KETOROLAC TROMETHAMINE 0.45% 4 DROP/0.4 ML DROPERETTE OS PRN; -TETRACAINE HCL 0.5% OPH SOLN 2 ML OD PRN; -TROPICAMIDE 1% OPH SOLN 3 ML OD PRN
[2017-10-13] MEDS: CYCLOPENTOLATE 0.2%/PHENYLEPHRINE 1% OPH SOLN 2 ML OS PRN ×3 (07:51→08:11)
[2017-10-13] MEDS: TROPICAMIDE 1% OPH SOLN 3 ML OS PRN ×3 (07:51→08:11)
[2017-10-13] MEDS: BESIFLOXACIN HCL 0.6% OPH SUSP 5 ML BOTTLE OS PRN ×4 (07:51→08:43)
[2017-10-13] MEDS: TETRACAINE HCL 0.5% OPH SOLN 2 ML OS PRN ×4 (07:52→08:36)
[2017-10-13] MEDS ORDERED: FENTANYL CITRATE INJ/PF 100 MCG/2 ML AMPUL ONE (08:00)
[2017-10-13] MEDS ORDERED: MIDAZOLAM 2 MG/2 ML INJ ONE (08:00)
[2017-10-13] MEDS ORDERED: ONDANSETRON HCL INJ/PF 4 MG/2 ML SDV ONE (08:00)
[2017-10-13] MEDS: LIDOCAINE 1% INJ-PF (10 MG/ML) 30 ML SDV ONE ×2 (08:35)
[2017-10-13] MEDS: CHONDR SU A NA/HYALUR INTRAOC KIT (SURGICARE) ONE ×2 (08:35)
[2017-10-13] MEDS: EPINEPHRINE INJ/PF 1 MG/1 ML AMPULE ONE ×2 (08:35)
--- NOTE | 2017-10-13 20:19 | DISCHARGE SUMMARY E ---
Discharge Summary NAME: CHELY APONTE : 1950 AGE: 67Y ADMITTED: 10/13/2017 DISCHARGED: 10/13/2017 HOSPITAL COURSE: This is a 67-year-old female who underwent cataract extraction of the left eye. DIAGNOSIS: Cataract, left eye. She underwent surgery because she was having difficulty with glare from headlights, making it very bothersome to drive. DISCHARGE INSTRUCTIONS: She is to be on a regular diet. No bending at her waist, no heavy lifting. She should use her Besivance, Ilevro, and Durezol at 3 p.m. and 8 p.m. and sleep with a rigid shield. I will see her for her 1 day postoperative tomorrow. DICTATING PHYSICIAN: BERNARDO YOUNG M.D. [id number] PHY#: [id number] 2011 ID: [id number] JOB#: [id number] ACCT: [id number] cc:BERNARDO YOUNG M.D. >
--- NOTE | 2017-10-13 20:34 | [facility] OPERATIVE REPORT E ---
[facility] Operative Report NAME: CHELY APONTE AGE: 67Y DATE OF SURGERY: 10/13/2017 ROOM: PREOPERATIVE DIAGNOSIS: CATARACT, LEFT EYE. POSTOPERATIVE DIAGNOSIS: CATARACT, LEFT EYE. OPERATION: Cataract extraction with intraocular lens implant of the left eye. SURGEON: BERNARDO YOUNG M.D. ANESTHESIA: Topical. PROCEDURE: After obtaining appropriate consent, the patient's left eye was prepped and draped in sterile fashion as well as the surgeon in a sterile manner and cataract surgery was started. First a paracentesis blade was used to make a small side-port incision. Viscoelastic was used to inflate the anterior chamber. Next a 2.4 mm incision was made with the paracentesis blade. A continuous capsulorrhexis incision was made using a cystotome and Utrata forceps. Following this hydrodissection was carried out to make the lens fully loose and mobile and it was rotated 90 degrees. Following this, a xgqwti-lnf-weuwcoh technique was used to phacoemulsify the lens with a CDE of 6.78. The remaining cortex was removed with irrigation/aspiration. Provisc was instilled into the capsular bag to inflate the bag. A SN60WF, 21.0 diopter lens was placed. The remaining viscoelastic material was removed with irrigation/aspiration. Following this, a 10-0 nylon suture was used to close the incision and it was found to be watertight. Vigamox was instilled in the eye and a protective shield was placed over the eye. The patient returned to the postoperative recovery in stable condition. DICTATING PHYSICIAN: BERNARDO YOUNG M.D. [id number] [id number] PHY#: [id number] 2011 ID: [id number] JOB#: [id number] ACCT: [id number] cc:BERNARDO YOUNG M.D. >
== END 2017-10-13 09:23 | disposition home or self-care (01) ==
LOC: SC 07:34
PROVIDERS: ATTEND Internal Medicine
PROC: 08RK3JZ Replacement of Left Lens with Synthetic Substitute, Percutaneous Approach (ICD-10-PCS; principal; 2017-10-13 08:30)
DX: H25.812 Combined forms of age-related cataract, left eye (principal); Z96.1 Presence of intraocular lens; I10 Essential (primary) hypertension; E11.9 Type 2 diabetes mellitus without complications; M79.7 Fibromyalgia; I20.9 Angina pectoris, unspecified; Z79.84 Long term (current) use of oral hypoglycemic drugs; Z79.82 Long term (current) use of aspirin; Z88.5 Allergy status to narcotic agent; Z88.8 Allergy status to other drugs, medicaments and biological substances
CPT/HCPCS: 66984; V2632; J2250; J3490 ×2; A9270; J0171; J3010; J2405; 142

== ENCOUNTER 2020-08-20 10:59 | Emergency (ER) | payer MEDICARE, OTHER ==
[2020-08-20] MEDS ORDERED: ONDANSETRON HCL INJ/PF 4 MG/2 ML SDV IV ONE (13:56)
[2020-08-20] MEDS ORDERED: NORMAL SALINE 1000 ML 1,000 ML IV ONE (13:56)
--- NOTE | 2020-08-20 14:01 | ER Document Report ---
ED GI/ - General Stated Complaint: WEAKNESS Time Seen by Provider: 08/20/20 12:25 Primary Care Provider: GLADYS MARTINEZ MD [Primary Care Provider] - Follow up as needed Mode of Arrival: Medic Information source: Patient, Emergency Med Personnel Notes: MY NOTES 70-year-old female arrives with chief complaint of having slept for more than 24 hours and when she woke up she had some nausea with vomiting clear phlegm and some mild epigastric pain. She had been taking baclofen since mid last week as written by her PMD. She had a pulled back muscle and asked the reason why she was on the muscle relaxer. She says she is taking Skelaxin without problem in the past but this first time she is ever taken baclofen. She reports for 30 minutes after awakening she was very dizzy and confused. She denies any lower abdominal pain dysuria but did have some loose stools. She also denies any alcohol use or illegal drug use. Patient denies any cough or cold or hawkins or influenza TRAVEL OUTSIDE OF THE [place] IN LAST 30 DAYS: No - Related Data Allergies/Adverse Reactions: morphine [Morphine] Allergy (Intermediate, Verified 08/20/20 14:08) itching prednisone [Prednisone] Allergy (Verified 08/20/20 14:08) zolpidem tartrate [From Ambien] Allergy (Verified 08/20/20 14:08) bupropion [From Wellbutrin] Adverse Reaction (Verified 08/20/20 14:08) venlafaxine [From Effexor] Adverse Reaction (Verified 08/20/20 14:08) Past Medical History - General Information source: Patient, Emergency Med Personnel - Social History Smoking Status: Never Smoker Cigarette use (# per day): No Chew tobacco use (# tins/day): No Smoking Education Provided: No Frequency of alcohol use: None Drug Abuse: None Lives with: Family Family History: Reviewed & Not Pertinent, CAD, DM Patient has suicidal ideation: No Patient has homicidal ideation: No - Past Medical History Cardiac Medical History: Reports: Hx Coronary Artery Disease, Hx Hypertension Denies: Hx Heart Attack Pulmonary Medical History: Reports: Hx Bronchitis - CHRONIC SINUS PROBS, Hx Pneumonia Denies: Hx Asthma, Hx COPD Neurological Medical History: Reports: Hx Migraine. Denies: Hx Cerebrovascular Accident, Hx Seizures Endocrine Medical History: Reports: Hx Diabetes Mellitus Type 2 Renal/ Medical History: Denies: Hx Peritoneal Dialysis GI Medical History: Denies: Hx Hepatitis, Hx Hiatal Hernia, Hx Ulcer Musculoskeletal Medical History: Reports Hx Arthritis Psychiatric Medical History: Reports: Hx Depression Infectious Medical History: Denies: Hx Hepatitis Past Surgical History: Reports: Hx Appendectomy, Hx Hysterectomy, Hx Orthopedic Surgery - laminectomy, left shoulder. Denies: Hx Mastectomy, Hx Open Heart Surgery, Hx Pacemaker - Immunizations Hx Diphtheria, Pertussis, Tetanus Vaccination: Yes Hx Pneumococcal Vaccination: 08/08/10 Review of Systems - Review of Systems Constitutional: See HPI, Weakness EENT: No symptoms reported Cardiovascular: No symptoms reported Respiratory: No symptoms reported Gastrointestinal: See HPI, Abdominal pain, Nausea, Vomiting Genitourinary: No symptoms reported Female Genitourinary: No symptoms reported Musculoskeletal: No symptoms reported Skin: No symptoms reported Hematologic/Lymphatic: No symptoms reported Neurological/Psychological: No symptoms reported Physical Exam - Vital signs Vitals: Temp Pulse Resp BP Pulse Ox 97.9 F 70 16 126/48 H 97 08/20/20 13:57 08/20/20 13:57 08/20/20 13:57 08/20/20 13:57 08/20/20 13:57 Interpretation: Normal - General General appearance: Appears well, Alert - HEENT Head: Normocephalic, Atraumatic Eyes: Normal Pupils: PERRL - Respiratory Respiratory status: No respiratory distress Chest status: Nontender Breath sounds: Normal Chest palpation: Normal - Cardiovascular Rhythm: Regular Heart sounds: Normal auscultation Murmur: No - Abdominal Inspection: Normal Distension: No distension Bowel sounds: Normal Tenderness: Nontender Organomegaly: No organomegaly - Rectal Hemorrhoids: Other - Deferred - Genitourinary Bimanuel exam: Other - Deferred - Back Back: Normal, Nontender - Extremities General upper extremity: Normal inspection, Nontender, Normal color, Normal ROM, Normal temperature General lower extremity: Normal inspection, Nontender, Normal color, Normal ROM, Normal temperature, Normal weight bearing. No: Keke's sign - Neurological Neuro grossly intact: Yes Cognition: Normal Orientation: AAOx4 [place] Coma Scale Eye Opening: Spontaneous [place] Coma Scale Verbal: Oriented [place] Coma Scale Motor: Obeys Commands [place] Coma Scale Total: 15 Speech: Normal Motor strength normal: LUE, RUE, LLE, RLE Sensory: Normal - Psychological Associated symptoms: Normal affect, Normal mood - Skin Skin Temperature: Warm Skin Moisture: Dry Skin Color: Normal Course - Vital Signs Vital signs: Temp Pulse Resp BP Pulse Ox 97.9 F 70 16 126/48 H 97 08/20/20 13:57 08/20/20 13:57 08/20/20 13:57 08/20/20 13:57 08/20/20 13:57 - Laboratory Results Result Diagrams: 08/20/20 11:31 08/20/20 11:31 Laboratory Results Interpreted: 08/20/20 08/20/20 11:31 11:31 WBC 10.9 H Hgb 11.9 L Hct 34.6 L Glucose 131 H Total Protein 6.1 L Albumin 3.3 L Critical Laboratory Results Reviewed: Yes Attending or Supervising Physician who Reviewed Labs: KERRIE SUBRAMANIAN JR - Radiology Results Critical Radiology Results Reviewed: No Critical Results Attending or Supervising Physician who Reviewed Radiology: KERRIE SUBRAMANIAN JR Critical Care Note - Critical Care Note Comments: I discussed findings with patient with negative lab and negative x-ray results. Discharge - Discharge Clinical Impression: Weakness, Syncope and collapse, Dehydration Condition: Stable Disposition: HOME, SELF-CARE Additional Instructions: Follow-up with personal doctor this week; return to ER as needed; take medicines as directed; encourage fluids and avoid rapid rising or standing. Hold onto something for least 1 minute before ambulating. Referrals: GLADYS MARTINEZ MD [Primary Care Provider] - Follow up as needed
[2020-08-20 14:02] LABS: ABSOLUTE EOSINOPHILS # (AUTO) 0.2 10^3/uL (0.0-0.6); ABSOLUTE LYMPHOCYTES (AUTO) 2.3 10^3/uL (0.5-4.7); ABSOLUTE MONOCYTES (AUTO) 0.7 10^3/uL (0.1-1.4); ABSOLUTE NEUT (AUTO) 7.7 10^3/uL (1.7-8.2); BASOPHILS % (AUTO) 0.3 % (0-2); EOSINOPHILS % (AUTO) 2.2 % (0-6); HEMATOCRIT 34.6 % (36.0-47.0); HEMOGLOBIN 11.9 g/dL (12.0-15.5); LYMPHOCYTES % (AUTO) 20.8 % (13-45); MEAN CORPUSCULAR HEMOGLOBIN 30.5 pg (27.0-33.4); MEAN CORPUSCULAR HGB CONC 34.4 g/dL (32.0-36.0); MEAN CORPUSCULAR VOLUME 89 fl (80-97); MONOCYTES % (AUTO) 6.6 % (3-13); PLATELET COUNT 251 10^3/uL (150-450); RED CELL DISTRIBUTION WIDTH 12.9 % (11.5-14.0); SEGMENTED NEUTROPHILS % (AUTO) 70.1 % (42-78); TOTAL CELLS COUNTED % (AUTO) 100 %; WHITE BLOOD COUNT 10.9 10^3/uL (4.0-10.5)
--- NOTE | 2020-08-20 14:13 | RADIOLOGY REPORT (SQ) ---
EXAM DESCRIPTION: CHEST SINGLE VIEW IMAGES COMPLETED DATE/TIME: 08/20/2020 2:01 pm REASON FOR STUDY: weak COMPARISON: 10/14/2014 EXAM PARAMETERS: NUMBER OF VIEWS: One view. TECHNIQUE: Single frontal radiographic view of the chest acquired. RADIATION DOSE: NA LIMITATIONS: None. FINDINGS: LUNGS AND PLEURA: No opacities, masses or pneumothorax. No pleural effusion. MEDIASTINUM AND HILAR STRUCTURES: No masses. Contour normal. HEART AND VASCULAR STRUCTURES: Heart normal in size. Normal vasculature. BONES: No acute findings. HARDWARE: None in the chest. OTHER: No other significant finding. IMPRESSION: NO ACUTE RADIOGRAPHIC FINDING IN THE CHEST. TECHNICAL DOCUMENTATION: JOB ID: [id number] 2010 [employer]- All Rights Reserved Reading location - IP/workstation name: [email or web address]
[2020-08-20 14:18] LABS: ALBUMIN 3.3 g/dL (3.5-5.0); ALKALINE PHOSPHATASE 77 U/L (38-126); ANION GAP 8 (5-19); ASPARTATE AMINO TRANSFERASE 24 U/L (14-36); BILIRUBIN,DIRECT 0.3 mg/dL (0.0-0.4); BILIRUBIN,TOTAL 0.6 mg/dL (0.2-1.3); BLOOD UREA NITROGEN 17 mg/dL (7-20); CALCIUM 9.2 mg/dL (8.4-10.2); CARBON DIOXIDE 24 mmol/L (22-30); CHLORIDE 106 mmol/L (98-107); CREATINE KINASE 35 U/L (30-135); GLUCOSE 131 mg/dL (75-110); POTASSIUM 3.9 mmol/L (3.6-5.0); TOTAL PROTEIN 6.1 g/dL (6.3-8.2)
[2020-08-20 16:29] VITALS: BP 137/59
== END 2020-08-20 16:27 | disposition home or self-care (01) ==
LOC: ER 10:59
DX: E86.0 Dehydration (principal); R11.2 Nausea with vomiting, unspecified; R53.1 Weakness; R55 Syncope and collapse; R10.13 Epigastric pain; R19.4 Change in bowel habit; I25.10 Atherosclerotic heart disease of native coronary artery without angina pectoris; I10 Essential (primary) hypertension; E11.9 Type 2 diabetes mellitus without complications; Z88.6 Allergy status to analgesic agent; Z88.5 Allergy status to narcotic agent; Z88.8 Allergy status to other drugs, medicaments and biological substances
CPT/HCPCS: 99284; 96361; 96374; 36415; 82550; 83605; 85025; 80053; 84484; 71045; J2405; J7030